=== PATIENT | male | born 1995 ===

== ENCOUNTER 2022-10-16 18:00 | Outpatient (CLI) | payer BC | END 2022-10-16 18:01 | disposition home or self-care (01) | LOC: SLEEPLAB 18:00 | PROVIDERS: ATTEND Student in an Organized Health Care Education/Training Program | DX: G47.33 Obstructive sleep apnea (adult) (pediatric) (principal); R06.83 Snoring; E66.9 Obesity, unspecified | CPT/HCPCS: 95800 ==